=== PATIENT | female | born 1945 | race Caucasian/White ===

== ENCOUNTER 2016-03-18 18:43 | Emergency (ER) | payer MEDICARE ==
[~2016-03-18] VITALS: Ht 157.4 cm; Wt 95.3 kg
[~2016-03-18 18:43] MED LIST: ATIVAN1 MG PO; COREG CR40 MG PO; LEXAPRO20 MG PO; LORAZEPAM0.5 MG PO; MEDROL DOSEPAK4 MG PO; PRAVASTATIN SOD40 MG PO
[2016-03-18 19:20] LABS: BASO % 0.3 % (0.0-1.0); EOS # 0.1 10*3/uL (0.0-0.4); EOS % 1.2 % (1.0-4.0); HEMATOCRIT 46.1 % (37.0-47.0); HEMOGLOBIN 15.2 g/dl (12.0-16.0); LYMPH # 2.4 10*3/uL (1.3-4.4); LYMPH % 31.9 % (27.0-41.0); MEAN CELL VOLUME 84.1 fl (81.0-99.0); MEAN CORPUSCULAR HGB 27.7 pg (27.0-31.0); MONO # 0.5 10*3/uL (0.1-1.0); MONO % 6.2 % (3.0-9.0); NEUT # 4.5 10*3/uL (2.3-7.9); NEUT % 60.3 % (47.0-73.0); PLATELET COUNT AUTOMATED 242 10*3/uL (130-400); RED BLOOD COUNT 5.48 10*6/uL (4.10-5.10); RED CELL DISTRI WIDTH 13.6 % (0-14.5); WHITE BLOOD COUNT 7.4 10*3/uL (4.8-10.8)
[2016-03-18 19:31] LABS: PROTHROMBIN TIME 10.5 SECONDS (9.0-12.4)
[2016-03-18 19:42] LABS: ALBUMIN 3.6 gm/dl (3.1-4.5); ALKALINE PHOSPHATASE 94 U/L (45-117); BILIRUBIN, TOTAL 0.4 mg/dl (0.2-1.0); BUN 11 mg/dl (7-24); CARBON DIOXIDE 27 mmol/L (21-32); CHLORIDE 105 mmol/L (98-107); CKMB 0.6 ng/ml (0.5-3.6); CPK 29 U/L (26-192); EST GLOM FILT AFRICAN AMERICAN > 60 ml/min; GLUCOSE 82 mg/dL (65-99); MAGNESIUM 1.9 mg/dL (1.5-2.1); POTASSIUM 4.3 mmol/L (3.5-5.1); SGOT/AST 12 IU/L (3-35); SGPT/ALT 21 U/L (12-78); SODIUM 139 mmol/L (136-145); TOTAL PROTEIN 6.8 gm/dL (6.4-8.2)
[2016-03-18 19:44] LABS: TROPONIN I < 0.015 ng/ml (<0.5)
== END 2016-03-18 20:38 | disposition home or self-care (01) ==
LOC: ED 18:43
PROVIDERS: Nurse Practitioner Family
DX: F41.9 Anxiety disorder, unspecified (principal); Z90.710 Acquired absence of both cervix and uterus

== ENCOUNTER 2017-02-04 15:19 | Emergency (ER) | payer MEDICARE ==
[~2017-02-04] VITALS: Ht 157.4 cm; Wt 95.3 kg
[2017-02-04] MEDS ORDERED: VIBRAMYCIN100 MG PO (16:01)
== END 2017-02-04 16:08 | disposition home or self-care (01) ==
LOC: ED 15:19
DX: S20.462A Insect bite (nonvenomous) of left back wall of thorax, initial encounter (principal); Z90.710 Acquired absence of both cervix and uterus; Z79.899 Other long term (current) drug therapy; W57.XXXA Bitten or stung by nonvenomous insect and other nonvenomous arthropods, initial encounter; Y93.89 Activity, other specified; Y92.89 Other specified places as the place of occurrence of the external cause; Y99.9 Unspecified external cause status

== ENCOUNTER 2017-07-19 18:17 | Emergency (ER) | payer MEDICARE ==
[~2017-07-19] VITALS: Ht 162.5 cm; Wt 79.8 kg
[~2017-07-19 18:17] MED LIST changes: +VIBRAMYCIN100 MG PO
== END 2017-07-19 19:10 | disposition home or self-care (01) ==
LOC: ED 18:17
DX: S70.262A Insect bite (nonvenomous), left hip, initial encounter (principal); R03.0 Elevated blood-pressure reading, without diagnosis of hypertension; Z90.710 Acquired absence of both cervix and uterus; Z79.899 Other long term (current) drug therapy; W57.XXXA Bitten or stung by nonvenomous insect and other nonvenomous arthropods, initial encounter; Y93.89 Activity, other specified; Y92.89 Other specified places as the place of occurrence of the external cause; Y99.8 Other external cause status